=== PATIENT | female | born 1970 | race Caucasian/White ===

== ENCOUNTER 2022-08-31 12:39 | Emergency (ER) | payer MEDICAID, OTHER ==
[~2022-08-31] VITALS: Ht 154.9 cm; Wt 60.0 kg
[2022-08-31] MEDS ORDERED: IPRATROPIUM BROM 0.5 MG/2.5ML INH SOL NEB ONE (13:00)
[2022-08-31] MEDS ORDERED: ALBUTEROL SULF 2.5 MG/0.5ML(0.5%) NEB SOLN NEB ONE (13:00)
[2022-08-31] MEDS ORDERED: methylPREDNISolone SOD SUCC 125 MG/2 ML VL IV ONE (13:00)
[2022-08-31] MEDS ORDERED: SODIUM CHLORIDE 0.9% 1,000 ML IV ONE (13:00)
[2022-08-31 13:40] LABS: Basophils # (auto) 0 10 ^3/uL (0-0.2); Basophils % (auto) 0.5 % (0.0-2.0); Eosinophils # (auto) 0 10 ^3/uL (0-0.8); Eosinophils % (auto) 0.9 % (0.0-7.0); Hematocrit 38.9 % (36.0-46.0); Hemoglobin 13.3 g/dL (12.2-16.2); Lymphocytes # (auto) 2.3 10 ^3/uL (0.4-5.4); Lymphocytes % (auto) 42.3 % (10.0-50.0); Mean Corpuscular Hemoglobin 32.5 pg (28.0-32.0); Mean Corpuscular Hgb Conc. 34.3 g/dL (32.0-36.0); Mean Corpuscular Volume 94.7 fL (80.0-100.0); Monocytes # (auto) 0.5 10 ^3/uL (0-1.3); Monocytes % (auto) 8.3 % (0.0-12.0); Neutrophils # (auto) 2.6 10 ^3/uL (1.6-8.6); Nucleated Red Blood Cells % 0.1 %; Red Cell Distribution Width 12.4 % (11.8-14.3); White Blood Cell 5.5 10^3/uL (4.4-10.8)
[2022-08-31 14:04] LABS: Albumin 3.9 g/dL (3.4-5.0); Calcium 8.9 mg/dL (8.5-10.1); Magnesium 2.4 mg/dL (1.6-2.6); Potassium 3.9 mmol/L (3.5-5.1)
[2022-08-31 14:09] LABS: BUN/Creatinine Ratio 15.1; Bilirubin, Total 0.3 mg/dL (0.2-1.0); Total Protein 7.4 g/dL (6.4-8.2)
[2022-08-31 14:18] LABS: Urine Bacteria NONE SEEN /hpf (None Seen); Urine Blood Negative /uL (Negative); Urine Specific Gravity 1.005 (1.001-1.035); Urine WBC <1 /hpf (0 - 5)
[2022-08-31] MEDS ORDERED: PRED20TA2 PO (16:56)
[2022-08-31] MEDS ORDERED: AZIT500T PO (16:56)
[2022-08-31 17:59] VITALS: BP 109/66
== END 2022-08-31 16:57 | disposition home or self-care (01) ==
LOC: ER 12:39
DX: J45.901 Unspecified asthma with (acute) exacerbation (principal); F17.210 Nicotine dependence, cigarettes, uncomplicated; Z20.822 Contact with and (suspected) exposure to COVID-19; Z90.49 Acquired absence of other specified parts of digestive tract; Z90.710 Acquired absence of both cervix and uterus
CPT/HCPCS: 36415; 71046; 80053; 81001; 83735; 84443; 85025; 87426; 93005; 94640; 96361; 96374; 99285; J2930; J7030; J7644

== ENCOUNTER 2023-02-11 13:13 | Emergency (ER) | payer MEDICAID ==
[~2023-02-11] VITALS: Ht 154.9 cm; Wt 61.8 kg
[~2023-02-11 13:13] MED LIST: AZIT500T PO; PRED20TA2 PO
[2023-02-11] MEDS ORDERED: IOHEXOL 350 MG/ML 100ML IJ ONE (13:34)
[2023-02-11] MEDS ORDERED: SODIUM CHLORIDE 0.9% 1,000 ML IV ONE (13:45)
[2023-02-11] MEDS ORDERED: METOCLOPRAMIDE HCL 5MG/ml INJ 2ml VIAL IV ONE (13:45)
[2023-02-11] MEDS ORDERED: KETOROLAC TROMETH 30 MG/ML 1ML VIAL IV ONE (13:45)
[2023-02-11] MEDS: DexAMETHasone SOD PHOS 10MG/1ML VIAL INJ IV ONE ×2 (13:45→14:26)
[2023-02-11 13:47] LABS: Urine Bacteria NONE SEEN /hpf (None Seen); Urine Blood Negative /uL (Negative); Urine Mucus FEW (None Seen); Urine WBC <1 /hpf (0 - 5)
[2023-02-11 14:07] LABS: Basophils # (auto) 0.1 10 ^3/uL (0-0.2); Basophils % (auto) 0.6 % (0.0-2.0); Eosinophils # (auto) 0 10 ^3/uL (0-0.8); Eosinophils % (auto) 0.4 % (0.0-7.0); Hematocrit 37.7 % (36.0-46.0); Hemoglobin 12.7 g/dL (12.2-16.2); Lymphocytes # (auto) 1.7 10 ^3/uL (0.4-5.4); Lymphocytes % (auto) 14.8 % (10.0-50.0); Mean Corpuscular Hemoglobin 31.6 pg (28.0-32.0); Mean Corpuscular Hgb Conc. 33.7 g/dL (32.0-36.0); Mean Corpuscular Volume 93.7 fL (80.0-100.0); Monocytes # (auto) 0.5 10 ^3/uL (0-1.3); Monocytes % (auto) 4.6 % (0.0-12.0); Neutrophils % (auto) 79.6 % (37.0-80.0); Red Blood Cells 4.02 10^6/uL (4.0-5.20); White Blood Cell 11.3 10^3/uL (4.4-10.8)
[2023-02-11 14:25] LABS: INR 0.97 (0.9-1.15); Partial Thromboplastin Time 29.8 sec (24.6-33.4)
[2023-02-11 14:36] LABS: Albumin 3.5 g/dL (3.4-5.0); Calcium 9.2 mg/dL (8.5-10.1); Magnesium 2.4 mg/dL (1.6-2.6); Potassium 3.9 mmol/L (3.5-5.1)
[2023-02-11 14:41] LABS: BUN/Creatinine Ratio 10.8 (10.0-20.0); Bilirubin, Total 0.4 mg/dL (0.2-1.0); Total Protein 7.4 g/dL (6.4-8.2)
[2023-02-11 15:46] LABS: Urine WBC None Seen /hpf (0 - 5)
[2023-02-11 16:02] LABS: Urine Bacteria NONE SEEN /hpf (None Seen); Urine Blood Negative /uL (Negative); Urine Specific Gravity 1.018 (1.001-1.035)
[2023-02-11] MEDS ORDERED: METO-281 PO (16:06)
[2023-02-11 16:09] LABS: Amphetamine Screen, Urine NEGATIVE (NEGATIVE); Barbiturate Scree,Urine NEGATIVE (NEGATIVE); Benzodiazephine Screen, Urine NEGATIVE (NEGATIVE); Cannabinoid Screen, Urine NEGATIVE (NEGATIVE); Cocaine Screen, Urine NEGATIVE (NEGATIVE); Opiate Scree,Urine NEGATIVE (NEGATIVE); Phencyclidine Screen, Urine NEGATIVE (NEGATIVE)
[2023-02-11 16:23] VITALS: BP 115/70
== END 2023-02-11 16:36 | disposition home or self-care (01) ==
LOC: ER 13:13
DX: G43.909 Migraine, unspecified, not intractable, without status migrainosus (principal); J45.909 Unspecified asthma, uncomplicated; Z90.49 Acquired absence of other specified parts of digestive tract; Z90.710 Acquired absence of both cervix and uterus; Z90.89 Acquired absence of other organs
CPT/HCPCS: 36415; 70450; 70496; 71045; 80053; 80307; 81001; 83735; 83880; 84484; 85025; 85610; 85730; 93005; 96361; 96374; 96375; 99285; J1100; J1885; J2765; J7030; Q9967

== ENCOUNTER 2024-03-07 19:47 | Emergency (ER) | payer MEDICAID ==
[~2024-03-07] VITALS: Ht 152.4 cm; Wt 63.6 kg
[~2024-03-07 19:47] MED LIST changes: +METO-281 PO
[2024-03-07 20:57] LABS: Urine Bacteria None Seen /hpf (None Seen)
[2024-03-07 21:15] LABS: Urine Blood 1+ /uL (Negative); Urine Clarity Clear (Clear); Urine Color Yellow (Yellow); Urine Mucus FEW (None Seen); Urine Protein, UAD TRACE (Negative); Urine Specific Gravity 1.026 (1.001-1.035); Urine Urobilinogen Normal (Negative); Urine WBC 1 /hpf (0 - 5)
[2024-03-07 22:33] LABS: Basophils # (auto) 0.1 10 ^3/uL (0-0.2); Basophils % (auto) 0.4 % (0.0-2.0); Eosinophils # (auto) 0 10 ^3/uL (0-0.8); Eosinophils % (auto) 0.2 % (0.0-7.0); Hemoglobin 13.5 g/dL (12.2-16.2); Lymphocytes # (auto) 2.1 10 ^3/uL (0.4-5.4); Lymphocytes % (auto) 15.4 % (10.0-50.0); Mean Corpuscular Hemoglobin 30.9 pg (28.0-32.0); Mean Corpuscular Hgb Conc. 32.9 g/dL (32.0-36.0); Mean Corpuscular Volume 93.9 fL (80.0-100.0); Monocytes # (auto) 0.9 10 ^3/uL (0-1.3); Monocytes % (auto) 6.7 % (0.0-12.0); Neutrophils # (auto) 10.3 10 ^3/uL (1.6-8.6); Neutrophils % (auto) 77.3 % (37.0-80.0); Red Blood Cells 4.37 10^6/uL (4.0-5.20); Red Cell Distribution Width 12.6 % (11.8-14.3); White Blood Cell 13.4 10^3/uL (4.4-10.8)
[2024-03-07 22:35] VITALS: BP 142/74; PULSE 102; RESP 18; O2SAT 98
[2024-03-07 22:39] VITALS: TEMP 100.1
[2024-03-07] MEDS: methylPREDNISolone SOD SUCC 125 MG/2 ML VL IM ONE (22:39)
[2024-03-07] MEDS: ACETAMINOPHEN 500 MG TAB PO ONE (22:39)
[2024-03-07] MEDS: KETOROLAC TROMETH 30 MG/ML 1ML VIAL IM ONE (22:40)
[2024-03-07 22:42] LABS: Alanine Aminotransferase 38 U/L (7-40); Albumin 4.9 g/dL (3.2-4.8); Alkaline Phosphatase 154 U/L (46-116); Anion Gap 9 (5-15); Aspartate Aminotransferase 28 U/L (13-40); BUN/Creatinine Ratio 12.4 (10.0-20.0); Blood Urea Nitrogen 11 mg/dL (9-23); Calcium 10.2 mg/dL (8.5-10.1); Carbon Dioxide 25 mmol/L (20-30); Chloride 102 mmol/L (98-107); Glucose 95 mg/dL (74-106); Potassium 3.9 mmol/L (3.5-5.1); Sodium 136 mmol/L (136-145)
[2024-03-07 22:43] LABS: Bilirubin, Total 0.7 mg/dL (0.2-1.0); Total Protein 8.2 g/dL (5.7-8.2)
[2024-03-07] MEDS ORDERED: CEPH500C PO (23:03)
== END 2024-03-07 23:19 | disposition home or self-care (01) ==
LOC: ER 19:47
DX: D84.9 Immunodeficiency, unspecified (principal); R50.9 Fever, unspecified; J45.909 Unspecified asthma, uncomplicated; Z90.49 Acquired absence of other specified parts of digestive tract; Z90.710 Acquired absence of both cervix and uterus
CPT/HCPCS: 36415; 80053; 81001; 83605; 85025; 96372; 99284; J1885; J2930

== ENCOUNTER → 2024-09-05 | Outpatient (CLI) | payer MEDICAID ==
[~2024-09-05] MED LIST changes: +CEPH500C PO
== END | disposition home or self-care (01) ==
LOC: XYW 10:16
PROVIDERS: ATTEND Student in an Organized Health Care Education/Training Program
DX: R00.0 Tachycardia, unspecified (principal)
CPT/HCPCS: 93306

== ENCOUNTER 2025-03-21 09:15 | Day surgery (SDC) | payer MEDICAID ==
[2025-03-17 14:54] LABS: Basophils # (auto) 0 10 ^3/uL (0-0.2); Basophils % (auto) 0.7 % (0.0-2.0); Eosinophils # (auto) 0 10 ^3/uL (0-0.8); Eosinophils % (auto) 0.7 % (0.0-7.0); Hematocrit 39.9 % (36.0-46.0); Hemoglobin 13.7 g/dL (12.2-16.2); Lymphocytes # (auto) 2.5 10 ^3/uL (0.4-5.4); Lymphocytes % (auto) 35.9 % (10.0-50.0); Mean Corpuscular Hemoglobin 32.6 pg (28.0-32.0); Mean Corpuscular Hgb Conc. 34.4 g/dL (32.0-36.0); Mean Corpuscular Volume 94.7 fL (80.0-100.0); Monocytes # (auto) 0.5 10 ^3/uL (0-1.3); Monocytes % (auto) 7.5 % (0.0-12.0); Neutrophils # (auto) 3.8 10 ^3/uL (1.6-8.6); Neutrophils % (auto) 55.2 % (37.0-80.0); Nucleated Red Blood Cells % 0.1 %; Platelet Count (auto) 311 10^3/uL (140-450); Red Blood Cells 4.21 10^6/uL (4.0-5.20); Red Cell Distribution Width 12.3 % (11.8-14.3); White Blood Cell 6.9 10^3/uL (4.4-10.8)
[2025-03-17 15:04] LABS: Urine Bacteria FEW /hpf (None Seen); Urine Blood Negative /uL (Negative); Urine Clarity Clear (Clear); Urine Color Colorless (Yellow); Urine Protein, UAD Negative (Negative); Urine Specific Gravity 1.009 (1.001-1.035); Urine Squamous Epithelial Cell FEW /hpf (<5); Urine Urobilinogen Normal (Negative); Urine WBC 1 /HPF (0-5); Urine pH 5.5 (5.0-9.0)
[2025-03-17 15:07] LABS: INR 0.97 (0.9-1.15); Partial Thromboplastin Time 26.6 SEC (24.5-34.5); Prothrombin Time 10.3 sec (9.3-11.8)
[2025-03-17 15:29] LABS: Alanine Aminotransferase 25 U/L (7-40); Anion Gap 9 (5-15); Aspartate Aminotransferase 20 U/L (13-40); BUN/Creatinine Ratio 13.2 (10.0-20.0); Bilirubin, Total 0.5 mg/dL (0.2-1.0); Blood Urea Nitrogen 12 mg/dL (9-23); Carbon Dioxide 27 mmol/L (20-31); Chloride 104 mmol/L (98-107); Glucose 95 mg/dL (74-106); Potassium 4.3 mmol/L (3.5-5.1); Sodium 140 mmol/L (136-145); Total Protein 8.2 g/dL (5.7-8.2)
[2025-03-17 15:30] LABS: Albumin 4.9 g/dL (3.2-4.8); Alkaline Phosphatase 123 U/L (46-116); Calcium 10.5 mg/dL (8.7-10.4)
[~2025-03-21] VITALS: Ht 154.9 cm; Wt 60.3 kg
[~2025-03-21 09:15] MED LIST changes: +ALBU0.084 IN; +ALBUAER3 IN; +ASCO500T11 GT; +ASPI81CH59 PO; -AZIT500T PO; +BUDE2SUS3 IN; +BUSP5TAB51 PO; +CALC-179 OR; -CEPH500C PO; +CETI10TA2 PO; +CYAN100056 PO; +EST0625T PO; +FLUT1SPR5; +GABA250S7 PO; +HYOS0.1274 PO; +IBUP100S11 GT; +LEVO75TA6 PO; +LIDO4PAD EX; +MELO15TA29 PO; -METO-281 PO; +MONT-8 OR; +OME40GT GT; +TRIA0.02 TOP; +VALA500T33 PO
[2025-03-21] MEDS ORDERED: PROPOFOL 10 MG/ML 20 ML IV ONE ×2 (10:36→10:47)
[2025-03-21 11:08] VITALS: PULSE 86; RESP 18; TEMP 97.4; O2SAT 98
--- NOTE | 2025-03-21 11:16 | DVHOP2 ---
Operative Report DATE OF OPERATION: 03/21/25 PROCEDURE: Colonoscopy with hot snare polypectomy. PREOPERATIVE INDICATION: The patient is a 54 -year-old female undergoing colonoscopy for screening due to change in bowel habits POSTOPERATIVE DIAGNOSES: 1. Patient had a 1.5-2 cm sigmoid polyp on a stalk seen at about 25 cm above the anal verge. This was removed completely via hot snare polypectomy and the specimens were retrieved 2. There was an adjacent 3-4 mm benign-appearing polyp that was also seen and removed by hot snare polypectomy and the specimens were retrieved 3. Trace internal hemorrhoids otherwise essentially completely normal colonoscopy examination up to the cecum and terminal ileum PROCEDURE PERFORMED BY: Glenys Helton M.D. SCOPE: Olympus videocolonoscope. ASA CLASS: 3. PREOPERATIVE MEDICATIONS: Aguilar roman, Albert PROCEDURE IN DETAIL: After obtaining an informed consent, the patient was placed on left lateral decubitus position. She was then sedated with the above medications. A rectal examination was performed that was normal. The colonoscope was then passed through the anus into the rectosigmoid and through the descending, transverse, and ascending colon up to the cecum with visualization of the appendiceal orifice, base of the cecum and the ileocecal valve. The colonoscope was then withdrawn. The distal 5-10 cm of the terminal ileum were normal No masses or colitis was noted. There was no clear-cut diverticular disease. In the sigmoid colon at 25 cm above the anal verge there was a large 1.5-2 cm polyp on a short stalk This was removed completely via hot snare polypectomy and the specimens were retrieved. There was an adjacent 3-4 mm benign-appearing polyp that was also seen and removed by hot snare polypectomy for about 30 cm above the anal verge This was also retrieved. No other polyps or masses were seen. On retroflexion she had trace internal hemorrhoids. The patient tolerated the procedure well without difficulty. WITHDRAWAL TIME: 11 minutes QUALITY OF THE PREP: [place] Bowel Prep score: 9. COMPLICATIONS : None SPECIMENS: Sigmoid polyps x2 DISPOSITION: Stable D/C to home PLAN: 1. Repeat colonoscopy base on pathology results likely in three years 2. Resume GI soft diet advance as tolerated 3. Hold aspirin NSAIDs blood thinners for 5-7 days 4. Outpatient follow up with me in 4-6 weeks to review results and discuss further management GLENYS HELTON MD March 21, 2025 11:16
[2025-03-21 11:18] VITALS: PULSE 89; RESP 20; O2SAT 100
--- NOTE | 2025-03-21 11:20 | DVHOP2 ---
Operative Report DATE OF OPERATION: 03/21/25 PROCEDURE: Upper Endoscopy with biopsy. PREOPERATIVE INDICATION: The patient is a 54 -year-old female undergoing endoscopy for chronic GERD and intermittent dysphagia POSTOPERATIVE DIAGNOSES: 1. 2-3 cm sliding-type hiatal hernia with short-segment extension of columnar epithelium into the distal esophagus for 1-2 cm from which biopsies were obtained 2. Mild gastroduodenitis otherwise normal examination up to the 2nd and 3rd part of the duodenum 3. GE junction was dilated with Sims number [id number] PROCEDURE PERFORMED BY: Glenys Antunez GI NURSE: SCOPE: Olympus videoendoscope. ASA CLASS: 3. PREOPERATIVE MEDICATIONS: Mac Albert roman PROCEDURE IN DETAIL: After obtaining an informed consent, the patient was placed on left lateral decubitus position. The patient was then sedated with the above medications. A bite block was placed between her teeth. The endoscope was then passed through the oropharynx, into the esophagus, and through the stomach and pylorus up to the second and third part of the duodenum. The endoscope was then withdrawn. The 2nd and 3rd part of the duodenal were normal and the duodenal bulb showed minimal duodenitis. There was good bile drainage. Duodenal biopsies were obtained. The endoscope was then withdrawn into the stomach. Patient had mild gastritis involving the antrum and body of the stomach. On r etroflexion the fundus and cardia were normal. Gastric biopsies were obtained. The endoscope was then withdrawn into distal esophagus where she had a 2-3 cm sliding-type hiatal hernia with slightly irregular squamocolumnar junction and short-segment Barretts The remaining distal and proximal esophagus and oropharynx were unremarkable. The endoscope was then withdrawn. A Sims dilator number [id number] was passed through the distal esophagus with no significant resistance. Repeat endoscopy confirmed adequate dilatation There was no mucosal injury or bleeding. GE junction biopsies were obtained. The patient tolerated the procedure well without difficulty. COMPLICATIONS : None SPECIMENS: Duodenal biopsies Gastric biopsies GE junction biopsies DISPOSITION: Stable D/C to home PLAN: 1. Await for biopsy result 2. Will place pt on Protonix 40 mg mg p.o. daily 3. Lifestyle and dietary modifications for GERD 4. Resume soft mechanical diet 5. Outpatient follow up with me in 4-6 weeks to review results and discuss further management GLENYS ANTUNEZ MD March 21, 2025 11:20
[2025-03-21 11:38] VITALS: BP 112/92; PULSE 86; RESP 17; O2SAT 99
== END 2025-03-21 11:45 | disposition home or self-care (01) ==
LOC: GI 09:15
PROVIDERS: ATTEND Internal Medicine Gastroenterology
DX: R19.4 Change in bowel habit (principal); D12.5 Benign neoplasm of sigmoid colon; K29.80 Duodenitis without bleeding; K29.50 Unspecified chronic gastritis without bleeding; K21.00 Gastro-esophageal reflux disease with esophagitis, without bleeding; K21.9 Gastro-esophageal reflux disease without esophagitis; K44.9 Diaphragmatic hernia without obstruction or gangrene; K63.5 Polyp of colon; K64.8 Other hemorrhoids; E03.9 Hypothyroidism, unspecified; Z86.73 Personal history of transient ischemic attack (TIA), and cerebral infarction without residual deficits; G43.909 Migraine, unspecified, not intractable, without status migrainosus; Z90.710 Acquired absence of both cervix and uterus; Z90.49 Acquired absence of other specified parts of digestive tract
CPT/HCPCS: 36415; 43239; 43450; 45385; 80053; 81001; 85025; 85610; 85730; 88305; 88312; 88342; J2704; J7030